=== PATIENT | male | born 1970 | race Caucasian/White ===

== ENCOUNTER 2018-04-26 12:05 | Day surgery (SDC) | payer BC ==
[~2018-04-26] VITALS: Ht 188 cm; Wt 106.6 kg
[~2018-04-26 12:05] MED LIST: AMLO10TA6 PO; ASPI325T8 PO; FURO20TA3 PO; HYDR50TA6 PO; HYDROmorphone 2 MG/ML VIAL IV PRN; IV RINGERS,LACTATED 1000ML 1,000 ML IV SCH; LIDOCAINE 1% PF 2 ML VIAL. ID PRN; LOSA100T14 PO; METF500T16 PO; METH5TAB12 PO; MORPHINE SULFATE 2 MG/ML VIAL. IV PRN; OMEP20CA9 PO; ONDANSETRON PF 4 MG/2 ML VIAL. IV PRN; PRAV80TA2 PO; PROCHLORPERAZINE 10 MG/2 ML VIAL. IV PRN; ceFAZolin 2GM PREMIX 2 GM/50 ML BAG IV ONE; fentaNYL PF VIAL 100 MCG/2 ML VIAL IV PRN
[2018-04-26] MEDS ORDERED: PROPOFOL 20 ML IV ONE (12:38)
[2018-04-26] MEDS ORDERED: ONDANSETRON PF 4 MG/2 ML VIAL. ONE (12:38)
[2018-04-26] MEDS ORDERED: FAMOTIDINE 20 MG/2 ML VIAL ONE (12:38)
[2018-04-26] MEDS ORDERED: fentaNYL PF VIAL 100 MCG/2 ML VIAL ONE ×2 (12:38→15:42)
[2018-04-26] MEDS ORDERED: DEXAMETHASONE SOD PHOS 20 MG/5 ML VIAL. ONE (12:38)
[2018-04-26] MEDS ORDERED: SUCCINYLCHOLINE 200 MG/10 ML VIAL. ONE (12:38)
[2018-04-26] MEDS ORDERED: MIDAZOLAM HCL/PF 2 MG/2 ML VIAL. ONE (12:38)
[2018-04-26] MEDS ORDERED: LIDOCAINE 2% PF Vial for OR 5 ML VIAL. ONE (12:38)
[2018-04-26] MEDS ORDERED: REMIFENTANIL 2 MG VIAL. IV ONE (12:43)
[2018-04-26] MEDS ORDERED: 0.9 % SODIUM CHLORIDE 20 ML VIAL. IJ ONE (12:44)
[2018-04-26] MEDS ORDERED: OXYMETAZOLINE 0.05% NASAL SPRAY 30ML BOTTLE. NS ONE (12:48)
[2018-04-26] MEDS ORDERED: LIDOCAINE 2% TOPICAL JELLY 5GM TUBE. TP ONE (13:11)
[2018-04-26] MEDS ORDERED: ePHEDrine PF IN SALINE 50 MG/5 ML DISP.SYRIN IV ONE (13:54)
[2018-04-26] MEDS ORDERED: LIDOCAINE 4% KIT 4 ML SOLUTION. TP ONE (14:27)
[2018-04-26] MEDS ORDERED: BUPIVAC MPF-EPI 0.5%-1:200000 30 ML VIAL. INJ ONE (14:30)
[2018-04-26] MEDS ORDERED: SEVOFLURANE > 120 MINUTES. IH ONE (14:47)
--- NOTE | 2018-04-26 15:09 | PDOC4 ---
IMMEDIATE POST OP NOTE Date: Apr 26, 2018 Pre-Op Diagnosis obstructive sleep apnea Post-Op Diagnosis same as above Procedure Performed tonsillectomy, anterior palatoplasty, partial uvulectomy Surgeon Dr. Sravani Tucker [employer] Collision Estimator none Anesthesiologist Dr. Gamble Anesthesia Type: General Blood Loss 10mL Specimens Obtained left and right tonsil Findings 1. 2+ tonsillar hypertrophy 2. Redundant tissue along lateral pharyngeal wall. 3. Elongated uvula/soft palate Complications none Operative Note #[id number] SRAVANI TUCKER MD Apr 26, 2018 15:09
[2018-04-26] MEDS ORDERED: ACET650S PO (15:13)
[2018-04-26] MEDS ORDERED: ONDA4TAB7 PO (15:14)
--- NOTE | 2018-04-26 15:37 | OP ---
DATE OF SURGERY: 04/26/2018 PREOPERATIVE DIAGNOSIS: Obstructive sleep apnea. POSTOPERATIVE DIAGNOSIS: Obstructive sleep apnea. PROCEDURE PERFORMED: Tonsillectomy, anterior palatoplasty and partial uvulectomy. SURGEON: Sravani Tucker MD ANESTHESIA: General endotracheal anesthesia. INDICATIONS FOR SURGERY: The patient is a 47-year-old male with a history of obstructive sleep apnea. The patient had significant improvement in symptoms after nasal surgery, but continues to have loud snoring and heroic apneas. The patient's anatomy was consistent with oropharyngeal origin of the sleep apnea and therefore, the decision was made the patient undergo the above procedure after the risks, benefits, and alternatives of surgery were thoroughly discussed with the patient and informed consent was obtained. INTRAOPERATIVE FINDINGS: 1. 2+ tonsillar hypertrophy. 2. Redundant tissue along the lateral pharyngeal san bilaterally. 3. Elongated uvula and soft palate. SPECIMENS OBTAINED: Left and right tonsils were sent for permanent pathology. ESTIMATED BLOOD LOSS: 10 mL. DESCRIPTION OF THE PROCEDURE: The patient was brought back to the room per anesthesia and intubated in standard fashion. The patient was then turned 90 degrees in the room. A shoulder roll was placed under his shoulders and his head was draped in a standard fashion. A Jennifer-Jensen mouth gag was used to expose the patient's oropharynx and place the patient in suspension. On palpation, there was no evidence of a submucosal cleft of the soft palate or medialized carotid arteries. The patient was found to have 2+ tonsillar hypertrophy with surrounding redundant lateral pharyngeal wall mucosa. The patient also had evidence of elongated soft palate and uvula. Using a curved Allis clamp, the left tonsil was grasped. I then used a Bovie electrocautery to dissect the tonsil away from the surrounding musculature. Suction Bovie electrocautery was used to obtain hemostasis on this side and left tonsil was sent for permanent pathology. An identical procedure was done on the right side and again, this right tonsil was sent for permanent pathology. Suction Bovie electrocautery was used bilaterally for hemostasis. The anterior and posterior tonsillar pillars were then closed using simple interrupted sutures of 3-0 Vicryl to tighten the lateral pharyngeal san bilaterally. I then injected the distal soft palate and lateral pharyngeal san with 0.25% Marcaine with 1:100,000 epinephrine. I then performed the anterior palatoplasty. I marked near the distal aspect of the soft palate a 0.5 cm in length from anterior to posterior and a 1.5 cm width rectangular area that was going to be excised. I then used the cut set of the needle tip Bovie to dissect the mucosa and the underlying musculature was resected using the coagulation. We did not enter a crossover and dissect through the mucosa of the nasopharyngeal surface of the soft palate. After this area was excised, I ensured adequate hemostasis by using the Bovie electrocautery. I then placed deep sutures of 4-0 Vicryl to bring the musculature together at the midline and to shorten the soft palate. The mucosal layer was then closed with a running locking suture of 4-0 chromic. This shortened the soft palate. There was still mild elongation of the uvula and I did a very conservative resection of the distal aspect of the uvula using the needle tip Bovie to resect the most distal aspect of the uvula in a skiving fashion with the posterior mucosa being longer than the anterior mucosa. I again used Bovie electrocautery to ensure hemostasis of the uvula and then, the anterior and posterior mucosa were closed with simple interrupted sutures of 4-0 chromic. I then assured adequate hemostasis of all of the operated sites. Orogastric tube was placed to suction out all stomach and hypopharyngeal contents. On visualization of the nasopharynx with a mirror, there was no significant adenoid tissue present. The Jennifer-Jensen mouth gag was subsequently removed. The patient was turned back over to anesthesia and extubated without complication. Our sponge, needle, instrument counts correct at the end of the case. COMPLICATIONS: None. DISPOSITION: Stable and transferred to recovery room. SRAVANI TUCKER MD DR: ARELIS/gladys JOB#: [id number] / [id number] JOSÉ MIGUEL
[2018-04-26] MEDS: fentaNYL PF VIAL 100 MCG/2 ML VIAL IV PRN ×2 (15:45→16:00)
[2018-04-26 16:30] VITALS: BP 178/88
--- NOTE | 2018-05-02 09:07 | PATHOLOGY ---
[facility] Accession Number: [id number] . 01 Material submitted: . PART A: LEFT TONSIL PART B: RIGHT TONSIL . 01 Clinical history: . Obstructive sleep apnea . 02 Diagnosis: A. Tonsil, left, tonsillectomy: - Tonsil with follicular hyperplasia. . B. Tonsil, right, tonsillectomy: - Tonsil with follicular hyperplasia. (SKM/db; 04/30/2018) LBQ/04/30/2018 . 02 Electronically signed: . Cassius Noland MD, Pathologist NPI- [id number] . 01 Gross description: . A. Received in formalin labeled "Jose David Samuel, left tonsil," is a tonsil measuring 3.6 x 1.9 x 1.9 cm in maximum dimensions. The mucosal surfaces are berumen with the typical crypts identified. Sectioning reveals lobulated, homogenous light berumen cut surfaces with no grossly identifiable lesions. Commercial Account Officer tissue is submitted in cassette A1. . B. Received in formalin labeled "Jose David Samuel, right tonsil," is a tonsil measuring 3.7 x 2.0 x 1.8 cm in maximum dimensions. The mucosal surfaces are berumen with the typical crypts identified. Sectioning reveals lobulated, homogenous light berumen cut surfaces with no grossly identifiable lesions. Commercial Account Officer tissue is submitted in cassette B1. (TSD; 04/27/2018) TOB/TOB . 02 Pathologist provided ICD-10: J35.1 . 02 CPT . 287788, [id number] Specimen Comment: A courtesy copy of this report has been sent to Specimen Comment: [phone]. Specimen Comment: Report sent to Performed at: [address] [place] [address] [address], [place], [place] [id number] MD Jeffry Pinto MD Phone: [phone] Performed at: [address] [id number] MD Harjit Hernandez MD Phone: [phone]
== END 2018-04-26 16:30 | disposition home or self-care (01) ==
LOC: SURG 12:05
PROVIDERS: ATTEND Otolaryngology
DX: G47.33 Obstructive sleep apnea (adult) (pediatric) (principal); J35.1 Hypertrophy of tonsils; I10 Essential (primary) hypertension; E11.9 Type 2 diabetes mellitus without complications; F41.9 Anxiety disorder, unspecified; F32.9 Major depressive disorder, single episode, unspecified; J45.909 Unspecified asthma, uncomplicated; F90.9 Attention-deficit hyperactivity disorder, unspecified type; E78.00 Pure hypercholesterolemia, unspecified; K21.9 Gastro-esophageal reflux disease without esophagitis; F98.8 Other specified behavioral and emotional disorders with onset usually occurring in childhood and adolescence; Z79.82 Long term (current) use of aspirin; Z79.899 Other long term (current) drug therapy; Z79.84 Long term (current) use of oral hypoglycemic drugs; Z83.3 Family history of diabetes mellitus; Z98.890 Other specified postprocedural states; Z72.89 Other problems related to lifestyle
CPT/HCPCS: 42145; 82962; 88304; A7015; J0330; J0690; J1100; J2001; J2250; J2405; J2704; J3010; J3490; J7120